=== PATIENT | male | born 1980 | race African-American/Black ===

== ENCOUNTER 2023-07-26 22:31 | Emergency (ER) | payer OTHER, SELFPAY ==
[~2023-07-26 22:31] MED LIST: Iopamidol-370 76% 500 ML MDV (1 ML CHARGE) ONE
[2023-07-26 23:16] LABS: #Monocytes 0.9 thou/uL (0.11-0.59); #Neutrophils 1.7 thou/uL (1.40-6.50); %Basophils 0.6 % (0.0-1.0); %Eosinophils 0.6 % (0.0-10.0); %Lymphocytes 44.1 % (21.0-51.0); %Neutrophils 35.3 % (42.0-75.0); Hematocrit 55.2 % (42.0-52.0); Hemoglobin 19.4 g/dL (14.0-18.0); Mean Corpuscular HGB CONC 35.1 g/dL (32.0-36.0); Mean Corpuscular Hemoglobin 31.6 pg (27.0-31.0); Mean Platelet Volume 10.3 fL (7.4-10.4); Platelet Count 259 10x3/uL (130-400); RBC Distribution Width 12.8 % (11.5-14.5); Red Blood Cell (RBC) Count 6.13 mill/uL (4.70-6.10); White Blood Cell (WBC) Count 4.8 10x3/uL (4.8-10.8)
[2023-07-26 23:41] LABS: ALT (SGPT) 29 U/L (8-55); AST (SGOT) 24 U/L (5-34); Albumin 5.2 g/dL (3.5-5.0); Alkaline Phosphatase 86 U/L (40-110); Anion Gap 19 mmol/L (10-20); BUN (Urea Nitrogen) 34 mg/dL (8.9-20.6); Bilirubin, Total 1.3 mg/dL (0.2-1.2); CK (CPK) 388 U/L (30-200); Calc. Creatinine Clearance 0 mL/min (70-130); Calcium 10.3 mg/dL (7.8-10.44); Carbon Dioxide 19 mmol/L (22-29); Chloride 98 mmol/L (98-107); Estimated GFR 35; Globulin 4.4 g/dL (2.4-3.5); Glucose 168 mg/dL (70-105); Potassium 3.2 mmol/L (3.5-5.1); Protein, Total 9.6 g/dL (6.0-8.3); Sodium 133 mmol/L (136-145)
[2023-07-27] MEDS ORDERED: Acetaminophen 500 MG TAB ONE (04:35)
[2023-07-27 05:09] LABS: Anion Gap 14 mmol/L (10-20); BUN (Urea Nitrogen) 29 mg/dL (8.9-20.6); Calc. Creatinine Clearance 0 mL/min (70-130); Calcium 8.6 mg/dL (7.8-10.44); Carbon Dioxide 20 mmol/L (22-29); Chloride 102 mmol/L (98-107); Estimated GFR 59; Glucose 115 mg/dL (70-105); Potassium 3.6 mmol/L (3.5-5.1); Sodium 132 mmol/L (136-145)
== END 2023-07-27 05:46 | disposition home or self-care (01) ==
LOC: ERS 22:31
DX: M62.82 Rhabdomyolysis (principal)
CPT/HCPCS: 36415; 71045; 74177; 80048; 80053; 82550; 85025; 93005; 96360; 96361; Q9967